=== PATIENT | female | born 1985 | race Caucasian/White ===

== ENCOUNTER 2017-04-11 09:29 | Day surgery (SDC) | payer MEDICAID ==
[2017-03-27 10:59] VITALS: BP 125/89
[~2017-04-11] VITALS: Ht 162.6 cm; Wt 77.9 kg
[~2017-04-11 09:29] MED LIST: DULO60CA7 PO; EXPLANON ID; PREG100C PO
[2017-04-11] MEDS ORDERED: LACTATED RINGERS 1,000 ML IV SCH (10:01)
[2017-04-11 10:16] LABS: HCG UR OBC PASS
[2017-04-11] MEDS ORDERED: BUPIVACAINE/PF 0.25% ONE (10:49)
[2017-04-11] MEDS ORDERED: HYDROmorphone 1 MG/ML, 1ML ONE ×3 (10:56→13:03)
[2017-04-11] MEDS ORDERED: MIDAZOLAM 1 MG/ML, 2ML ONE (10:56)
[2017-04-11] MEDS ORDERED: FENTANYL PF 100 MCG/2ML ONE ×2 (10:56→12:30)
[2017-04-11] MEDS ORDERED: METOCLOPRAMIDE 5 MG/ML, 2ML IV PRN (11:00)
[2017-04-11] MEDS ORDERED: ACETAMINOPHEN 325 MG TABLET PO PRN (11:00)
[2017-04-11] MEDS ORDERED: OXYcodone 5 MG/5 ML ORAL.SOL UDC PO PRN (11:00)
[2017-04-11] MEDS ORDERED: KETOROLAC 30 MG/1 ML IV PRN (11:00)
[2017-04-11] MEDS ORDERED: ONDANSETRON 2MG/ML, 2ML IVPush PRN (11:00)
[2017-04-11] MEDS ORDERED: HYDROcodone/APAP 7.5-325MG/15ML UDC PO PRN (11:00)
[2017-04-11] MEDS ORDERED: LIDOCAINE GEL 2%, 5ML ONE (11:27)
[2017-04-11] MEDS ORDERED: SUCCINYLCHOLINE 20 MG/ML, 10ML ONE (11:27)
[2017-04-11] MEDS ORDERED: ONDANSETRON 2MG/ML, 2ML ONE (11:27)
[2017-04-11] MEDS ORDERED: DEXAMETHASONE 4 MG/ML, 5ML ONE (11:27)
[2017-04-11] MEDS ORDERED: KETOROLAC 30 MG/1 ML ONE (11:27)
[2017-04-11] MEDS ORDERED: ROCURONIUM 10 MG/ML ONE (11:27)
[2017-04-11] MEDS ORDERED: PROPOFOL 10 MG/ML, 20ML ONE (11:27)
[2017-04-11] MEDS ORDERED: OXYcodone 5 MG/5 ML ORAL.SOL UDC ONE (12:30)
[2017-04-11] MEDS ORDERED: ACETAMINOPHEN 650 MG/20.3 ML UDC ONE (12:30)
[2017-04-11] MEDS: FENTANYL PF 100 MCG/2ML IV PRN ×2 (12:33→12:35)
[2017-04-11] MEDS: HYDROmorphone 1 MG/ML, 1ML IV PRN ×3 (12:45→13:05)
== END 2017-04-11 14:10 | disposition home or self-care (01) ==
LOC: OUT 09:29
PROVIDERS: ATTEND Specialist
DX: Z30.2 Encounter for sterilization (principal); Z88.0 Allergy status to penicillin
CPT/HCPCS: 58670; 81025; J0330; J1100; J1170; J1885; J2250; J2405; J2704; J3010; J3490; J7120